=== PATIENT | male | born 1970 | race African-American/Black ===

== ENCOUNTER 2024-05-23 03:23 | Emergency (ER) | payer OTHER ==
[~2024-05-23] VITALS: Ht 180.3 cm; Wt 95.3 kg
[2024-05-23 03:58] VITALS: BP 145/97; PULSE 98; RESP 18; TEMP 97.1; O2SAT 98
== END 2024-05-23 03:58 | disposition left against medical advice (07) ==
LOC: MED 03:23
DX: R41.3 Other amnesia (principal); E11.9 Type 2 diabetes mellitus without complications; V89.2XXA Person injured in unspecified motor-vehicle accident, traffic, initial encounter; Y93.89 Activity, other specified; Y92.410 Unspecified street and highway as the place of occurrence of the external cause; Y99.8 Other external cause status
CPT/HCPCS: 99283